=== PATIENT | female | born 1980 | race Caucasian/White ===

== ENCOUNTER 2019-06-23 12:23 | Inpatient (IN) | payer OTHER ==
[~2019-06-23] VITALS: Ht 172.7 cm; Wt 85.6 kg
[2019-06-23] MEDS ORDERED: SODIUM CHLORIDE FLUSH 10ML SYR IVF ONE (12:30)
[2019-06-23] MEDS ORDERED: ONDANSETRON 2MG/ML, 2ML IVPush ONE (12:30)
[2019-06-23] MEDS ORDERED: HYDROmorphone 1 MG/ML, 1ML INJ ONE ×3 (12:35→16:23)
[2019-06-23] MEDS: HYDROmorphone 1 MG/ML, 1ML INJ IVPush PRN ×2 (12:39→12:58)
[2019-06-23] MEDS ORDERED: PLEASE ENTER ALLERGIES MC SCH (13:00)
--- NOTE | 2019-06-23 13:10 | NUR ---
FINGERPRINT CLASSIFIER: ORTHO DR. BARBOZA PAGED PER ERP DR. LI REQUEST AT THIS TIME
--- NOTE | 2019-06-23 13:19 | NUR ---
pt presents to ED with c/o right lower leg injury s/p twisting motion while playing basketball this pm at approx 1200. 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 pt reports 9/10 pain to right lower leg on arrival. pt given 0.5 mg IV push dilaudid on arrival, pt noted no improvement of pain with this. pt given second 0.5 mg IV push dilaudid, which brought pain level down to 6.5/10. right dorsalis 3+ strength, cap refill <3 sec to right toes. pt able to move right toes without difficulty. KAYY Dodge has consulted ortho who recommends splint and surgery. pt informed of results and POC by KAYY Dodge. lab at bedside for draw, all monitors in place. pt a&o, resps even and unlabored, nadn at this time.
[2019-06-23] MEDS ORDERED: HYDROmorphone 2 MG/ML, 1ML IVPush PRN (13:30)
--- NOTE | 2019-06-23 13:35 | NUR ---
ERP Dar notified pt still has 6.5/10 pain to right LE s/p 1 mg total dilaudid and 6mg morphine (admin fishing boat captain). ERP gave orders for additional 1mg dilaudid IVP q15min prn.
[2019-06-23 13:37] LABS: BASOPHILS # (AUTO) 0.04 x10^3/uL (0-0.1); BASOPHILS % (AUTO) 1 % (0-1); EOSINOPHILS # (AUTO) 0.13 x10^3/uL (0-0.4); EOSINOPHILS % (AUTO) 1 % (1-7); LYMPHOCYTES % (AUTO) 16 % (22-44); MD NO; MEAN CORPUSCULAR HEMOGLOBIN 32.8 pg (27.0-34.8); MEAN CORPUSCULAR HGB CONC 34.3 g/dL (32.4-35.8); MEAN CORPUSCULAR VOLUME 95.7 fL (80-100); MEAN PLATELET VOLUME 8.2 fL (7.4-10.4); MONOCYTES # (AUTO) 0.67 x10^3/uL (0.2-0.8); MONOCYTES % (AUTO) 7 % (2-9); NEUTROPHILS % (AUTO) 75 % (42-75); PLATELET COUNT 288 x10^3/uL (130-400); RED BLOOD COUNT 4.25 x10^6/uL (3.82-5.3); RED CELL DISTRIBUTION WIDTH 14.1 % (9.6-15.2)
[2019-06-23 13:45] LABS: ALBUMIN 4.2 g/dL (3.4-5.0); ANION GAP 9 mmol/L (5-15); CALCIUM 9.5 mg/dL (8.5-10.1); CHLORIDE 104 mmol/L (98-107); CREATININE 0.63 mg/dL (0.55-1.02)
[2019-06-23] MEDS ORDERED: CALC-545 PO (13:53)
[2019-06-23] MEDS ORDERED: ESTR0.6246 PO (13:53)
[2019-06-23] MEDS ORDERED: IBUP-1902 PO (13:53)
[2019-06-23] MEDS ORDERED: diuretic PO (13:53)
[2019-06-23] MEDS ORDERED: [UNRECOGNIZED DRUG - OTHER] PO (13:53)
--- NOTE | 2019-06-23 13:58 | NUR ---
pt assisted to void with bedpan. pt medicated per emar, tolerated well. spo2 dropped to 90% on room air after most recent dilaudid admin, resps remain even and unlabored at rate of 13-20. oxygen applied via nasal cannula at 2L/min. pt splinted by EDT, splint assessed by ERP Dar. per ERP, splint is satisfactory. pt to have CT scan. cms remains intact to right LE and toes.
--- NOTE | 2019-06-23 14:10 | NUR ---
REPORT FROM HEATHER OBANDO. PT TO CT AT THIS TIME THEN TO ROOM 6 VIA GURNEY. PT AWAKE/ALERT, USING CELL PHONE. WHEN ASKED ABOUT PAIN PT BECOMES TEARFUL. TOES PINK WITH GOOD CAP REFILL.
--- NOTE | 2019-06-23 14:27 | NUR ---
PT MOVED TO ROOM 6 S/P CT. REPORT GIVEN TO HETAHER CAREY. +3 RIGHT DORSALIS PALPATED UNDER SPLINT. PT A&O, RESPS EVEN AND UNLABORED. NSR ON DRIER HELPER WITH NO ECTOPY. REPORT GIVEN TO HEATHER CAREY AT BEDSIDE.
--- NOTE | 2019-06-23 14:55 | NUR ---
HOSPITALIST AT BEDSIDE
[2019-06-23] MEDS ORDERED: ONDANSETRON ODT 4 MG PO PRN (15:30)
[2019-06-23] MEDS ORDERED: HYDROXYZINE PAMOATE 50MG CAP PO PRN (15:30)
[2019-06-23] MEDS ORDERED: ONDANSETRON 2MG/ML, 2ML IVPush PRN (15:30)
[2019-06-23] MEDS ORDERED: hydrALAzine 20 MG/ML, 1ML IVPush PRN (15:30)
--- NOTE | 2019-06-23 15:30 | NUR ---
PT ASSISTED TO BED MIRANDA FOR UA. LINENS CHANGED. PT DENIES NEED FOR PAIN MEDICATIONS. TOES REMAIN PINK/WARM
[2019-06-23] MEDS ORDERED: D5%-0.45NACL+KCL 20MEQ 1,000 ML IV SCH (15:49)
--- NOTE | 2019-06-23 16:11 | NUR ---
AWAITING OR TO RECEIVE PATIENT. PT UPDATED ON DELAY. DENIES NEEDS.
[2019-06-23] MEDS: HYDROmorphone 2 MG/ML, 1ML IVPush PRN ×5 (16:25→23:06)
--- NOTE | 2019-06-23 16:27 | NUR ---
PT MEDICATED PER EMAR FOR 11/12 LLE PAIN. TOES REMAIN PINK/WARM. SPO2/BP MONITORING IN PLACE.
--- NOTE | 2019-06-23 16:40 | NUR ---
REPORT TO CHIEF COMPLIANCE OFFICER.
[2019-06-23] MEDS ORDERED: CHLORHEXIDINE 15 ML UDC ONE (17:07)
[2019-06-23] MEDS ORDERED: MIDAZOLAM 1 MG/ML, 2ML ONE (17:09)
[2019-06-23] MEDS ORDERED: FENTANYL PF 100 MCG/2ML ONE ×4 (17:09→19:27)
[2019-06-23] MEDS ORDERED: hydrALAzine 20 MG/ML, 1ML IV PRN (17:30)
[2019-06-23] MEDS ORDERED: OXYcodone 5 MG/5 ML ORAL.SOL UDC PO PRN (17:30)
[2019-06-23] MEDS ORDERED: PROMETHAZINE 25 MG/ML, 1ML IV PRN (17:30)
[2019-06-23] MEDS ORDERED: ONDANSETRON 2MG/ML, 2ML IV PRN (17:30)
[2019-06-23] MEDS ORDERED: MEPERIDINE/PF 25MG/ML,1ML IVPush PRN (17:30)
[2019-06-23] MEDS ORDERED: ACETAMINOPHEN 325 MG TABLET PO PRN (17:30)
[2019-06-23] MEDS ORDERED: LABETALOL 5MG/ML, 20ML IV PRN (17:30)
[2019-06-23] MEDS ORDERED: EPHEDRINE 50 MG/ML, 1ML IVPush PRN (17:30)
[2019-06-23] MEDS ORDERED: SUCCINYLCHOLINE 20 MG/ML, 10ML ONE (17:37)
[2019-06-23] MEDS ORDERED: KETOROLAC 30 MG/1 ML ONE (17:37)
[2019-06-23] MEDS ORDERED: PROPOFOL 10 MG/ML, 20ML ONE (17:37)
[2019-06-23] MEDS ORDERED: DEXAMETHASONE 4 MG/ML, 1ML ONE (17:37)
[2019-06-23] MEDS ORDERED: LIDOCAINE-MPF 2% ,5ML ONE (17:37)
[2019-06-23] MEDS ORDERED: ONDANSETRON 2MG/ML, 2ML ONE (17:37)
[2019-06-23] MEDS ORDERED: CEFAZOLIN 1,000 MG ONE (17:37)
[2019-06-23] MEDS ORDERED: BUPIVACAINE/PF-EPI 0.5% 1:200K ONE (19:01)
[2019-06-23] MEDS ORDERED: HYDROmorphone 2 MG/ML, 1ML ONE (19:27)
[2019-06-23] MEDS: FENTANYL PF 100 MCG/2ML IV PRN ×2 (19:30→19:39)
[2019-06-23] MEDS ORDERED: LORazepam 2 MG/ML, 1ML ONE (19:32)
[2019-06-23] MEDS ORDERED: NICOTINE 14MG/24 HR PATCH.TD24 ONE (20:36)
[2019-06-23] MEDS: NICOTINE 14MG/24 HR PATCH.TD24 TD SCH (20:39)
[2019-06-23] MEDS: ACETAMINOPHEN 325 MG TABLET PO PRN (20:40)
[2019-06-23] MEDS: OXYcodone IR 5MG TABLET PO PRN (20:40)
[2019-06-23 21:14] VITALS: BP 104/62
[2019-06-23] MEDS: ESTROGENS CONJUGATED 0.625 MG TABLET PO SCH (21:51)
[2019-06-24 00:31] VITALS: BP 89/58
[2019-06-24 00:40] VITALS: BP 90/56
[2019-06-24] MEDS: CEFAZOLIN PMX 1GM/50ML 50 ML IV SCH ×3 (00:45→16:31)
[2019-06-24] MEDS: ACETAMINOPHEN 325 MG TABLET PO PRN ×3 (00:45→11:10)
[2019-06-24] MEDS: OXYcodone IR 5MG TABLET PO PRN ×6 (00:45→22:21)
[2019-06-24 04:44] VITALS: BP 100/63
[2019-06-24 07:15] VITALS: BP 115/78
[2019-06-24] MEDS: BACLOFEN 10 MG TABLET PO PRN ×2 (11:10→19:26)
[2019-06-24] MEDS ORDERED: ENOXAPARIN 40 MG/0.4 ML SQ SCH (14:00)
[2019-06-24 14:35] VITALS: BP 125/80
[2019-06-24] MEDS: ESTROGENS CONJUGATED 0.625 MG TABLET PO SCH (19:25)
[2019-06-24 19:43] VITALS: BP 105/71
[2019-06-25] MEDS: HYDROmorphone 2 MG/ML, 1ML IVPush PRN (02:09)
[2019-06-25] MEDS: BACLOFEN 10 MG TABLET PO PRN (03:52)
[2019-06-25] MEDS: OXYcodone IR 5MG TABLET PO PRN ×3 (03:52→12:49)
[2019-06-25] MEDS: NICOTINE 14MG/24 HR PATCH.TD24 TD SCH (03:52)
[2019-06-25 04:02] VITALS: BP 116/79
[2019-06-25 07:06] VITALS: BP 123/81
[2019-06-25] MEDS: ACETAMINOPHEN 325 MG TABLET PO PRN (07:31)
[2019-06-25] MEDS ORDERED: ASPIRIN 81 MG TABLET CHEW PO SCH (09:00)
[2019-06-25] MEDS ORDERED: OXYC-302 PO (11:20)
[2019-06-25] MEDS ORDERED: BACL-19 PO (11:20)
== END 2019-06-25 12:53 | disposition home or self-care (01) | DRG 494 ==
LOC: ED 14:07 → SUATTDRO 15:13 → EDIP 15:16 → 4NE 20:28
PROVIDERS: ADMIT Hospitalist; ATTEND Internal Medicine
PROC: 0QSG06Z Reposition Right Tibia with Intramedullary Internal Fixation Device, Open Approach (ICD-10-PCS; principal; 2019-06-23 17:00)
DX: S82.831A Other fracture of upper and lower end of right fibula, initial encounter for closed fracture (principal); S82.241A Displaced spiral fracture of shaft of right tibia, initial encounter for closed fracture; F41.9 Anxiety disorder, unspecified; F17.210 Nicotine dependence, cigarettes, uncomplicated; W01.0XXA Fall on same level from slipping, tripping and stumbling without subsequent striking against object, initial encounter; F10.10 Alcohol abuse, uncomplicated; X50.1XXA Overexertion from prolonged static or awkward postures, initial encounter; Y93.67 Activity, basketball; Z85.43 Personal history of malignant neoplasm of ovary; Z90.710 Acquired absence of both cervix and uterus; Z79.899 Other long term (current) drug therapy; Z82.49 Family history of ischemic heart disease and other diseases of the circulatory system; Y92.89 Other specified places as the place of occurrence of the external cause
CPT/HCPCS: 36415; 73590; 73600; 76000; 99285; J3490; 80048; 82040; 85025; 93005; C1713; G0378; J0690; J1100; J1170; J1650; J1885; J2250; J2405; J2704; J3010; J0330; J3480